=== PATIENT | male | born 1995 | race Caucasian/White ===

== ENCOUNTER 2018-06-11 00:36 | Emergency (ER) | payer OTHER ==
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
[2018-06-11 01:50] VITALS: BP 134/73
[2018-06-11] MEDS ORDERED: AMOXICILLIN/CLAVULANATE POT 875/125 MG TAB PO ONE (01:59)
== END 2018-06-11 02:53 | disposition home or self-care (01) ==
PROC: 09QKXZZ Repair Nasal Mucosa and Soft Tissue, External Approach (ICD-10-PCS; principal; 2018-06-11)
DX: S02.2XXB Fracture of nasal bones, initial encounter for open fracture (principal); Y04.2XXA Assault by strike against or bumped into by another person, initial encounter; Y99.8 Other external cause status